=== PATIENT | female | born 1965 | race Two or more races ===

== ENCOUNTER 2020-09-03 17:14 | Emergency (ER) | payer OTHER ==
[~2020-09-03] VITALS: Ht 160 cm; Wt 54.0 kg
[2020-09-03] MEDS ORDERED: MORPHINE SULFATE 4 MG/ML, 1ML IVPush PRN (18:00)
[2020-09-03] MEDS ORDERED: ONDANSETRON 2MG/ML, 2ML IVPush ONE (18:00)
[2020-09-03] MEDS ORDERED: SODIUM CHLORIDE FLUSH 10ML SYR IVF ONE (18:00)
[2020-09-03] MEDS ORDERED: SIMV5TAB14 PO (18:01)
[2020-09-03 18:09] LABS: MEAN CORPUSCULAR HEMOGLOBIN 31.2 pg (27.0-34.8); MEAN CORPUSCULAR HGB CONC 33.8 g/dL (32.4-35.8); MEAN PLATELET VOLUME 8.4 fL (7.4-10.4); PLATELET COUNT 251 x10^3/uL (130-400); RED BLOOD COUNT 3.93 x10^6/uL (3.82-5.3); RED CELL DISTRIBUTION WIDTH 12.7 % (9.6-15.2)
--- NOTE | 2020-09-03 18:11 | NUR ---
PT C/O RT FLANK PAIN, GENERALIZED ABD PAIN X 2 MONTHS, DECREASED APPETITE, DIZZINESS. NO MED TAKEN FOR PAIN. LAST BM: YESTERDAY. CLEAR, PALE YELLOW URINE SPECIMEN IN CONTAINER ON COUNTER. RESP EVEN & UNLABORED, SPEECH CLEAR, SKIN PALE PINK, W/D
[2020-09-03 18:20] LABS: ALBUMIN 3.8 g/dL (3.4-5.0); ANION GAP 3 mmol/L (5-15); CHLORIDE 108 mmol/L (98-107); CREATININE 0.85 mg/dL (0.55-1.02)
[2020-09-03 18:22] LABS: ALANINE AMINOTRANSFERASE 25 U/L (12-78); ALKALINE PHOSPHATASE 92 U/L (45-117); BILIRUBIN,TOTAL 0.3 mg/dL (0.2-1.0); TOTAL PROTEIN 7.2 g/dL (6.4-8.2)
[2020-09-03] MEDS ORDERED: ONDANSETRON 2MG/ML, 2ML ONE (18:24)
[2020-09-03] MEDS ORDERED: MORPHINE SULFATE 4 MG/ML, 1ML ONE (18:25)
--- NOTE | 2020-09-03 18:28 | NUR ---
PT AMBULATORY TO [facility] W/ STEADY GAIT
--- NOTE | 2020-09-03 18:30 | NUR ---
RETURNED TO ROOM W/OUT INCIDENT
[2020-09-03 18:42] LABS: MICROSCOPIC AUTO
--- NOTE | 2020-09-03 18:47 | NUR ---
ZOFRAN & MORPHINE GIVEN PER EMAR.
--- NOTE | 2020-09-03 18:48 | NUR ---
TO CT PER REYMUNDO
--- NOTE | 2020-09-03 18:51 | NUR ---
PT'S IN CT - US DELAY
[2020-09-03] MEDS ORDERED: OMNIPAQUE 350 MG/ML, 100ML BOTTLE ONE (19:01)
[2020-09-03 19:10] LABS: MD YES
[2020-09-03 19:16] LABS: <RBC MORPHOLOGY> NORMAL; EOS#(MANUAL) 0.26 x10^3/uL (0.0-0.4); EOS% (MANUAL) 5 % (1-7); LYMPH#(MANUAL) 2.19 x10^3/uL (1-3.4); LYMPHS% (MANUAL) 43 % (22-44); MONOS#(MANUAL) 0.05 x10^3/uL (0.3-2.7); MONOS% (MANUAL) 1 % (2-9); REACTIVE LYMPHS # (MANUAL) 0.31 x10^3/uL (0-0); REACTIVE LYMPHS % (MANUAL) 6 % (0-0); SEGS% (MANUAL) 45 % (42-75)
[2020-09-03 19:17] LABS: <PLATELET ESTIMATE> ADEQUATE; <PLT MORPHOLOGY> NORMAL PLT MORPH
--- NOTE | 2020-09-03 19:34 | NUR ---
PT IN ED ROOM; DOZING. EVEN CHEST RISE AND FALL NOTED. SIDE RAILS UP X2.
[2020-09-03 20:30] VITALS: BP 110/70
--- NOTE | 2020-09-03 20:40 | NUR ---
PT ASLEEP, RESP EVEN & UNLABORED
[2020-09-03] MEDS ORDERED: ONDANSETRON ODT 4 MG ONE (21:04)
--- NOTE | 2020-09-03 21:08 | NUR ---
PT C/O NAUSEA. PROVIDER NOTIFED. ZOFRAN ODT GIVEN.
[2020-09-03] MEDS ORDERED: ONDANSETRON ODT 4 MG PO ONE (21:30)
== END 2020-09-03 21:34 | disposition home or self-care (01) ==
LOC: ED 17:44
DX: R10.31 Right lower quadrant pain (principal); R10.11 Right upper quadrant pain; R51.9 Headache, unspecified; R53.1 Weakness; R30.0 Dysuria; R10.9 Unspecified abdominal pain; R11.2 Nausea with vomiting, unspecified
CPT/HCPCS: 36415; 74177; 76700; 80053; 81001; 83690; 85025; 96374; 96375; 99285; J2270; J2405; Q0162; Q9967